=== PATIENT | female | born 1950 | race Caucasian/White ===

== ENCOUNTER 2018-02-03 08:18 | Outpatient (CLI) | payer MEDICARE ==
--- NOTE | 2018-02-10 10:51 | MMO ---
BILATERAL SCREENING MAMMOGRAMS: HISTORY: A 67-year-old female for screening mammography. COMPARISON: 09/04/2015, 01/28/2012, 06/27/2011 FINDINGS: Bilateral MLO and CC views of the breasts show scattered fibroglandular breast tissue. There is no e vidence of suspicious mass, suspicious cluster of microcalcifications, or area of architectural disto rtion. Interpretation of this mammogram was performed with the assistance of computer aided detection. IMPRESSION: BI-RADS Category 1-Negative. Annual screening mammography is recommended. POS: WILLIAMS
== END 2018-02-03 08:19 | disposition home or self-care (01) ==
LOC: SCSMAMMO 08:18
PROVIDERS: ATTEND Family Medicine
DX: Z12.31 Encounter for screening mammogram for malignant neoplasm of breast (principal)
CPT/HCPCS: 77067

== ENCOUNTER 2019-02-11 12:46 | Outpatient (CLI) | payer MEDICARE ==
--- NOTE | 2019-02-11 13:21 | MMO ---
Bilateral MAMMO Bilat Screen [facility]. CLINICAL HISTORY: Patient is 68 years old and is seen for screening. The patient has no family history of breast cancer. The patient has no personal history of cancer. VIEWS: The views performed were: bilateral craniocaudal with tomosynthesis and bilateral mediolateral oblique with tomosynthesis. FILMS COMPARED: The present examination has been compared to a prior imaging study performed at [facility] on 02/03/2018. MAMMOGRAM FINDINGS: There are scattered fibroglandular densities. There are no suspicious masses, suspicious calcifications, or new areas of architectural distortion. IMPRESSION: THERE IS NO MAMMOGRAPHIC EVIDENCE OF MALIGNANCY. A ROUTINE FOLLOW-UP MAMMOGRAM IN 1 YEAR IS RECOMMENDED. THE RESULTS OF THIS EXAM WERE SENT TO THE PATIENT. ACR BI-RADS Category 1 - Negative MAMMOGRAPHY NOTE: 1. A negative mammogram report should not delay a biopsy if a dominant of clinically suspicious mass is present. 2. Approximately 10% to 15% of breast cancers are not detected by mammography. 3. Adenosis and dense breasts may obscure an underlying neoplasm. Reported by: MAMIE MOREL MD Electonically Signed: [id number]
--- NOTE | 2019-02-11 13:55 | BD ---
DEXA BONE DENSITY EXAM: HISTORY: A 68-year-old postmenopausal female for screening. FINDINGS: Lumbar Spine: BMD (g/cm2) L1 0.857 T-Score: -1.2 L2 0.896 T-Score: -1.2 L3 0.822 T-Score: -2.4 L4 0.770 T-Score: -2.6 L1-L4 0.834 T-Score: -1.9 Femoral Neck: 0.826 T-Score: -0.2 Total Femur: 0.799 T-Score: -1.2 Impression: Osteopenia. POS: SAURAV
== END 2019-02-11 12:47 | disposition home or self-care (01) ==
LOC: BICMAMMO 12:46
PROVIDERS: ATTEND Family Medicine
DX: Z12.31 Encounter for screening mammogram for malignant neoplasm of breast (principal); M81.0 Age-related osteoporosis without current pathological fracture; M85.89 Other specified disorders of bone density and structure, multiple sites
CPT/HCPCS: 77063; 77067; 77080

== ENCOUNTER 2020-05-02 07:38 | Outpatient (CLI) | payer MEDICARE ==
--- NOTE | 2020-05-02 08:50 | MMO ---
Bilateral MAMMO Bilat Screen [facility]. CLINICAL HISTORY: Patient is 70 years old and is seen for screening. The patient has no family history of breast cancer. The patient has no personal history of cancer. VIEWS: The views performed were: bilateral craniocaudal with tomosynthesis and bilateral mediolateral oblique with tomosynthesis. FILMS COMPARED: The present examination has been compared to prior imaging studies performed at [facility] on 02/03/2018, and at [facility] on 02/11/2019. This study has been interpreted with the assistance of computer-aided detection. MAMMOGRAM FINDINGS: There are scattered fibroglandular densities. There are no suspicious masses, suspicious calcifications, or new areas of architectural distortion. IMPRESSION: THERE IS NO MAMMOGRAPHIC EVIDENCE OF MALIGNANCY. A ROUTINE FOLLOW-UP MAMMOGRAM IN 1 YEAR IS RECOMMENDED. THE RESULTS OF THIS EXAM WERE SENT TO THE PATIENT. ACR BI-RADS Category 1 - Negative MAMMOGRAPHY NOTE: 1. A negative mammogram report should not delay a biopsy if a dominant of clinically suspicious mass is present. 2. Approximately 10% to 15% of breast cancers are not detected by mammography. 3. Adenosis and dense breasts may obscure an underlying neoplasm. Reported by: JANNETTE WAITE MD Electonically Signed: [id number]
== END 2020-05-02 07:39 | disposition home or self-care (01) ==
LOC: BICMAMMO 07:38
PROVIDERS: ATTEND Family Medicine
DX: Z12.31 Encounter for screening mammogram for malignant neoplasm of breast (principal)
CPT/HCPCS: 77063; 77067

== ENCOUNTER 2020-07-22 08:23 | Observation (INO) | payer MEDICARE ==
--- NOTE | 2020-07-22 08:53 | RAD ---
Chest AP view INDICATION: Chest pain COMPARISON: CT the chest dated November 14, 2016 FINDINGS: Lungs: The lungs are clear Cardiac silhouette: The cardiomediastinal silhouette appears within normal limits. Pulmonary vasculature: Normal Pleural spaces: No pleural effusion or pneumothorax is demonstrated. Upper abdomen: No abnormality seen. Osseous structures: There is scattered degenerative and osteoarthritic change present. Additional findings: None. IMPRESSION: No acute cardiopulmonary abnormality.
[2020-07-22 09:31] LABS: #Basophils 0.1 thou/uL (0.0-0.2); #Eosinphils 0.1 thou/uL (0.0-0.7); #Monocytes 0.5 thou/uL (0.11-0.59); #Neutrophils 3.1 thou/uL (1.40-6.50); %Basophils 1.1 % (0.0-1.0); %Eosinophils 1.4 % (0.0-10.0); %Lymphocytes 35.6 % (21.0-51.0); %Monocytes 8.1 % (0.0-10.0); %Neutrophils 53.9 % (42.0-75.0); Hemoglobin 12.6 g/dL (12.0-16.0); Mean Corpuscular HGB CONC 34.7 g/dL (32.0-36.0); Mean Corpuscular Hemoglobin 30.1 pg (27.0-31.0); Mean Corpuscular Volume 86.8 fL (78.0-98.0); Mean Platelet Volume 7.2 fL (7.4-10.4); Platelet Count 256 thou/uL (130-400); RBC Distribution Width 11.3 % (11.5-14.5); Red Blood Cell (RBC) Count 4.18 mill/uL (4.20-5.40); White Blood Cell (WBC) Count 5.7 thou/uL (4.8-10.8)
[2020-07-22 09:44] LABS: Bilirubin Negative (Negative); Blood, Urine Small (Negative); Glucose, Urine (Dipstick) Negative (Negative); Ketone, Urine Negative (Negative); Leukocyte Small (Negative); Nitrite Negative (Negative); Protein, Urine (Dipstick) Negative (Neg-Trace); Urobilinogen 0.2 mg/dL (Less than 2); pH, Urine 8.5 (5.0-9.0)
[2020-07-22 09:45] LABS: Clarity Clear (Clear)
[2020-07-22 09:53] LABS: Bacteria/HPF None Seen HPF (None Seen); Squamous Epithelial 0-3 HPF (0-3)
[2020-07-22] MEDS ORDERED: Nitroglycerin 0.4 MG TAB 1 EACH ONE (09:56)
[2020-07-22 10:03] LABS: ALT (SGPT) 12 U/L (8-55); AST (SGOT) 16 U/L (5-34); Alkaline Phosphatase 79 U/L (40-110); Anion Gap 16 mmol/L (10-20); BUN (Urea Nitrogen) 18 mg/dL (9.8-20.1); Bilirubin, Total 0.4 mg/dL (0.2-1.2); CK (CPK) 63 U/L (29-168); Calc. Creatinine Clearance 0 mL/min (70-130); Calcium 8.7 mg/dL (7.8-10.44); Carbon Dioxide 22 mmol/L (23-31); Chloride 107 mmol/L (98-107); Globulin 2.5 g/dL (2.4-3.5); Glucose 100 mg/dL (80-115); Lipase 62 U/L (8-78); Potassium 3.8 mmol/L (3.5-5.1); Protein, Total 6.5 g/dL (6.0-8.3); Sodium 141 mmol/L (136-145)
[2020-07-22] MEDS ORDERED: Acetaminophen 325 MG TAB PO PRN (11:51)
[2020-07-22] MEDS ORDERED: Nitroglycerin 0.4 MG TAB (25 Tab Bottle) SL PRN (11:51)
[2020-07-22] MEDS ORDERED: Ondansetron ODT 4 MG TAB PO PRN (12:09)
[2020-07-22] MEDS ORDERED: Ondansetron PF 4 MG/2 ML Vial IVP PRN (12:09)
--- NOTE | 2020-07-22 12:34 | HP ---
PRIMARY CARE PROVIDER: Dr. Guidry. CHIEF COMPLAINT: Chest pressure. HISTORY OF PRESENT ILLNESS: This is a 70-year-old female with history of dyslipidemia, who presents to the emergency room with a complaint of 3 weeks of minor pain and pressure across her lower chest that radiates around to her back. She reports the pain for the past 3 days has been daily, lasts for an hour or longer, and it is pressure, as well as pain that she describes as a "moving ache," rating it 2 to 3/10 in severity. She reports today waking up with it and having shortness of breath. She also had some nausea last night and today, but no vomiting. She did notice yesterday while chasing her granddaughter that she was easily out of breath. The patient chose to come to the hospital today because her [id number] has been having significant heart problems, for which he sits back in the emergency room today. Given the persistence of symptoms, she decided to present here today. The patient reports a history of TIA about 5 years ago and seeing a production underwriter at that time. She has not seen a production underwriter since then. In the emergency room, the patient evaluated, received nitroglycerin 0.4 mg sublingual and reports improvement, 1 L normal saline, and hospitalist called for admission. ALLERGIES: MORPHINE. CURRENT MEDICATIONS: 1. Bone density medication, she does not know the name. 2. Glaucoma drops. 3. Calcium. 4. Multivitamin. 5. Vitamin C. 6. Atorvastatin 20 mg at bedtime. 7. Omeprazole 20 mg b.i.d. 8. Fluoxetine 20 mg daily. PAST MEDICAL HISTORY: 1. Dyslipidemia. 2. Migraines. 3. History of TIA. 4. Glaucoma. 5. GERD. PAST SURGICAL HISTORY: 1. Complete hysterectomy. 2. Bladder suspension. SOCIAL HISTORY: The patient lives with a friend. Her son, Todd, is her surrogate decision maker and she is a full code. She denies any tobacco and reports one glass of wine per day. FAMILY HISTORY: Significant for a grandma and uncles with coronary artery disease or CT. None in her parents or siblings. REVIEW OF SYSTEMS: Positive for nausea last night and again today, heartburn that is more frequent despite taking omeprazole twice daily and an EGD that she reports was fairly normal a few months ago. She has also had a dry cough for about a month and intermittent shortness of breath. Negative for vomiting, fevers or chills, change in bowel or bladder function. All remaining review of systems are reviewed and negative. PHYSICAL EXAMINATION: VITAL SIGNS: Blood pressure 129/87, pulse 65, respirations 16, temperature 98.3, saturation 100% on room air. GENERAL: Awake, alert, responsive, in no apparent distress. Able to speak in full sentences. HEENT: Her pupils are equal and round. Tympanic membranes are translucent. Oral mucosa is pink and moist. NECK: Supple, nontender. LYMPHATICS: No palpable cervical or supraclavicular lymphadenopathy. LUNGS: Clear to auscultation bilaterally. No audible wheezing, rhonchi, or rales. HEART: Normal S1 and S2. Regular rate and rhythm. No significant murmur. ABDOMEN: Soft. Present bowel sounds. Nontender, nondistended. EXTREMITIES: No clubbing, cyanosis, or edema. SKIN: No visible rashes. NEUROLOGIC: No focal deficits. PSYCHIATRIC: Appears euthymic. VASCULAR: 2+ dorsalis pedis pulses. LABORATORY DATA AND IMAGING STUDIES: Chest x-ray personally reviewed. No acute cardiopulmonary change. EKG; normal axis, sinus rhythm, abnormal R-wave progression, no ST changes. CBC; 5.7, 12.6, 36.3, 256. Chemistry; 141, 3.8, 107, 22, 18, 0.78. LFTs negative. First troponin negative. Urinalysis shows small leukocyte esterase, 7 to 10 red blood cells, 4 to 6 white blood cells, negative nitrite. IMPRESSION: 1. Chest pain and pressure in a patient without a recent cardiac evaluation. 2. Dyslipidemia. 3. History of migraines. 4. Gastroesophageal reflux disease, inadequate control. 5. Glaucoma. PLAN: 1. Observation status in the hospital. 2. Cardiac monitoring with telemetry, echocardiogram, and stress test tomorrow. 3. Continue her statin and check a lipid panel in the morning. 4. We will continue low-dose aspirin, have nitroglycerin available p.r.n. for chest pain. 5. Increase the PPI to 40 mg b.i.d. and monitor GERD symptoms. 6. Continuing her home medication of fluoxetine. 7. Requested that the patient find out what glaucoma medicine she takes, so that she can either use her home medication or it can be provided here. 8. DVT prophylaxis. She is ambulatory. 9. GI prophylaxis not indicated. However, the patient is on a PPI, which we are continuing. 10. Code status is full. 11. Anticipated length of stay is one midnight for cardiac evaluation as detailed above. With any abnormalities, anticipate this stay will be longer. 12. Reviewed the plan of care with the patient who demonstrates understanding and agrees. No questions or further needs at the end of evaluation. Job ID: [id number]
[2020-07-22 12:55] VITALS: BMI 25.5
[2020-07-22 13:39] LABS: Troponin I Less than 0.010 ng/mL (< 0.028)
[2020-07-22] MEDS: Sodium Chloride 0.9% 1,000 ML IV SCH ×2 (15:18→21:28)
[2020-07-22 16:36] LABS: Troponin I Less than 0.010 ng/mL (< 0.028)
[2020-07-22] MEDS ORDERED: Atorvastatin Calcium 20 MG TAB PO SCH (21:00)
[2020-07-23 05:16] LABS: Anion Gap 9 mmol/L (10-20); BUN (Urea Nitrogen) 14 mg/dL (9.8-20.1); Calc. Creatinine Clearance 75 mL/min (70-130); Carbon Dioxide 26 mmol/L (23-31); Cardiac Risk 4.3 (Less than 4.5); Chloride 111 mmol/L (98-107); Cholesterol 151 mg/dl (< 200 Desired); Glucose 104 mg/dL (80-115); HDL Cholesterol 35 mg/dL (>60 Neg Risk); LDL Cholesterol, Calculated 83 mg/dL; Sodium 142 mmol/L (136-145); Triglycerides 165 mg/dL (Less than 150)
[2020-07-23 07:46] VITALS: TEMP 98.2
[2020-07-23] MEDS ORDERED: Aspirin Chewable 81 MG TAB PO SCH (09:00)
[2020-07-23] MEDS ORDERED: Non-Formulary Item 1 EACH (Fluoxetine Hcl [Fluoxetine Hcl] 20 MG Tablet) PO SCH (09:00)
[2020-07-23] MEDS ORDERED: FLUoxetine HCl 20 MG CAP PO SCH (09:00)
--- NOTE | 2020-07-23 11:45 | NM ---
Nuclear medicine Cardiac myocardial perfusion SPECT Ejection fraction study Wall motion cine: DATE:07/22/2020 11:51 AM INDICATION: Chest pain, dyspnea and history of TIA, dyslipidemia, reflux disease and gastroesophageal reflux disease TECHNIQUE: Number of days:2 Rest Study: Technetium 99m-sestamibi (Cardiolite) dose:27.7 mCi Stress study: Technetium 99m-sestamibi (Cardiolite) dose:30.6 mCi FINDINGS: Cardiac (myocardial perfusion) SPECT There are no reversible myocardial perfusion defects. Ejection fraction study Left ventricular EF = 85% Wall motion cine There was normal wall motion and wall thickening. IMPRESSION: No evidence of reversible myocardial ischemia.
--- NOTE | 2020-07-23 15:05 | DIS ---
DATE OF ADMISSION: 07/22/2020 DATE OF DISCHARGE: 07/23/2020 DISCHARGE DISPOSITION: Home. PRIMARY DISCHARGE DIAGNOSIS: Chest pain, which is noncardiac. SECONDARY DISCHARGE DIAGNOSES: 1. Dyslipidemia. 2. History of migraine. 3. Gastroesophageal reflux disease. 4. Depression, which is stable. PROCEDURES DONE DURING HOSPITALIZATION: Chest x-ray done showed no acute cardiopulmonary abnormality. Nuclear stress test done showed no reversible myocardial ischemia. Ejection fraction was 85%. Wall motion was normal with wall thickening. Echo with 2D Doppler done showed ejection fraction of 55% to 60%. There was diastolic dysfunction. Urine culture, no growth. H and H 12 and 36, platelet count 256, MCV 86. Troponin x3 negative. Total cholesterol 151, triglycerides 165, LDL 83, HDL 35, lipase 62, BUN 14, creatinine 0.7. LFTs within normal limits. DISCHARGE MEDICATIONS: The patient to continue home medication including, 1. Lipitor 20 mg p.o. at bedtime. 2. Fluoxetine 20 mg daily. 3. Latanoprost eyedrops as before for glaucoma. 4. Omeprazole 20 mg twice daily. ALLERGIES: TO MORPHINE. DISCHARGE PLAN: The patient to follow up with her primary care physician, Dr. Claudette Guidry in 1 week. BRIEF COURSE DURING HOSPITALIZATION: The patient initially came in with complaints of chest pain which was like a band all across her lower chest radiating to the back. In view of risk factors, the patient was placed under observation on telemetry. She has had 3 sets of troponin done which was negative. Nuclear stress test done showed no reversible ischemia. Echo showed normal wall motion. No significant valvular abnormalities were seen on the echo. She remained hemodynamically stable. Chest pain-free prior to discharge. The patient is advised to follow up with her primary care physician in 1 week. Please note, I have seen and examined the patient on the day of discharge. Job ID: [id number] [facility]
[2020-07-23 16:09] VITALS: BP 129/68
== END 2020-07-23 15:30 | disposition home or self-care (01) ==
LOC: ERS 08:23 → 2NO 10:58
PROVIDERS: ADMIT Family Medicine; ATTEND Internal Medicine
DX: R07.89 Other chest pain (principal); E78.5 Hyperlipidemia, unspecified; G43.909 Migraine, unspecified, not intractable, without status migrainosus; K21.9 Gastro-esophageal reflux disease without esophagitis; F32.9 Major depressive disorder, single episode, unspecified; F41.9 Anxiety disorder, unspecified; H40.9 Unspecified glaucoma; Z86.73 Personal history of transient ischemic attack (TIA), and cerebral infarction without residual deficits; Z79.899 Other long term (current) drug therapy; Z88.5 Allergy status to narcotic agent
CPT/HCPCS: 71045; 78452; 80048; 80053; 80061; 82550; 83690; 84484 ×2; 85025; 87086; 93005; 93017; 93306; 94760; 99285; A9500; G0378 ×3; 36415; 81003; 81015

== ENCOUNTER 2021-03-09 09:55 | Outpatient (CLI) | payer MEDICARE | END 2021-03-09 09:56 | disposition home or self-care (01) | LOC: BICMAMMO 09:55 | PROVIDERS: ATTEND Family Medicine | DX: M81.0 Age-related osteoporosis without current pathological fracture (principal); M85.89 Other specified disorders of bone density and structure, multiple sites | CPT/HCPCS: 77080 ==

== ENCOUNTER 2021-05-10 14:25 | Outpatient (CLI) | payer MEDICARE | END 2021-05-10 14:26 | disposition home or self-care (01) | LOC: BICMAMMO 14:25 | PROVIDERS: ATTEND Family Medicine | DX: Z12.31 Encounter for screening mammogram for malignant neoplasm of breast (principal) | CPT/HCPCS: 77063; 77067 ==